=== PATIENT | male | born 1990 | race Caucasian/White ===

== ENCOUNTER 2020-03-10 10:42 | Emergency (ER) | payer OTHER, BC, SELFPAY ==
[2020-03-10 10:46] VITALS: BP 164/96; PULSE 90; RESP 18; TEMP 36.8; O2SAT 98; BMI 27.3
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
== END 2020-03-10 11:30 | disposition home or self-care (01) ==
PROVIDERS: Emergency Provider Emergency Medicine; PCP Hospitalist
DX: S39.012A Strain of muscle, fascia and tendon of lower back, initial encounter (principal); V43.52XA Car driver injured in collision with other type car in traffic accident, initial encounter; Y93.9 Activity, unspecified; Y92.414 Local residential or business street as the place of occurrence of the external cause; Y99.9 Unspecified external cause status
CPT/HCPCS: 99283